=== PATIENT | female | born 1995 | race African-American/Black ===

== ENCOUNTER 2017-09-29 21:02 | Emergency (ER) | payer OTHER, SELFPAY ==
[2017-09-29 21:08] VITALS: BP 140/78; PULSE 108; RESP 20; TEMP 38.6; O2SAT 100; BMI 25.1
--- NOTE | 2017-09-29 21:37 | ED_ITS ---
HPI - Abdominal Pain General Chief Complaint: Abdominal Pain Stated Complaint: LOWER ABD PAIN CHILLS HEADACHE Time Seen by Provider: 09/29/17 21:18 Source: patient Mode of arrival: ambulatory Limitations: no limitations History of Present Illness HPI narrative: Patient presents to the emergency department today with a chief complaint ongoing right lower quadrant pain. She has had the symptoms for a week which include a low-grade fever and abdominal pain as well as some nausea. She denies runny nose, sore throat or cough. She denies any chest pain or shortness of breath. She has nausea but denies vomiting. She has had no diarrhea constipation. She denies dysuria, frequency urgency. She denies vaginal bleeding or discharge. She was seen and evaluated at [facility] yesterday and had extensive workup including urine and pelvic exam as well as ultrasound. She was treated with Rocephin and azithromycin for the possibility PID. MD complaint: abdominal pain Onset (ago): week(s) Pain Consistency: constant Location: RLQ Severity: moderate Quality: cramping and aching Radiation: none Migration to: no migration Relieving factors: nothing Exacerbating factors: nothing Associated symptoms: nausea and fever Related Data Previous Rx's Medication Instructions Recorded doxycycline hyclate 100 mg PO BID #20 tab 09/30/17 hydrocodone-acetaminophen 1 tab PO Q4-6H PRN #14 tab 09/30/17 Allergies Allergy/AdvReac Type Severity Reaction Status Date / Time No Known Allergies Allergy Mild Uncoded 09/29/17 21:12 Review of Systems Review of Systems All systems reviewed & are unremarkable except as noted in HPI and below Constitutional Reports body ache(s), Reports chills, Reports fatigue, Reports fever(s), Denies lethargy and Denies weakness Eyes Denies change in vision, Denies eye discharge, Denies irritation and Denies loss of vision ENT Ears, Nose, Mouth, and Throat: Denies change in voice, Denies neck pain and Denies sore throat Cardiovascular Denies chest pain, Denies irregular heart rhythm, Denies lightheadedness, Denies palpitations, Denies dyspnea, Denies dyspnea on exertion and Denies orthopnea Respiratory Denies cough, Denies dyspnea, Denies dyspnea on exertion and Denies wheezing Gastrointestinal Gastrointestinal: Reports abdominal pain Genitourinary Denies hematuria, Denies flank pain, Denies urinary incontinence and Denies urinary urgency Musculoskeletal Denies neck pain Neurologic Denies loss of vision and Denies weakness Endocrine Reports fatigue and Denies palpitations Allergic/Immunologic Denies wheezing [facility] Social History Smoking Status: Never smoker Exam Initial Vital Signs Initial Vital Signs: Vital Signs Temperature 101.4 F H 09/29/17 21:08 Pulse Rate 108 H 09/29/17 21:08 Respiratory Rate 20 09/29/17 21:08 Blood Pressure 140/78 H 09/29/17 21:08 Pulse Oximetry 100 09/29/17 21:08 Course Orders Ordered: ED Orders 09/29/17 21:55 Urine Microscopic Stat 09/29/17 21:58 Influenza A and B by PCR Rapid Stat 09/29/17 22:33 Basic Metabolic Panel Stat Bilirubin Total Stat Blood Culture Stat Complete Blood Count AUTO DIFF Stat Lactate (Lactic Acid) Stat Monotest Stat Procalcitonin Stat 09/29/17 22:41 CT abdomen pelvis w con Stat Sodium Chloride (Normal Saline 0.9%) 1,000 mls @ 1,000 mls/hr IV BOLUS ONE Stop: 09/30/17 00:12 Last Infusion: 09/29/17 23:15 Dose: 0 mls/hr Admin: 09/29/17 22:00 Dose: 1,000 mls/hr Ondansetron HCl (Zofran) 4 mg IV Q4HR PRN PRN Reason: Nausea And Vomiting Last Admin: 09/29/17 22:03 Dose: 4 mg Discontinued Medications Acetaminophen (Tylenol) 650 mg PO NOW ONE Stop: 09/29/17 23:54 Hydrocodone Bitart/Acetaminophen (Vicodin Prepack) 1 bottle MISC SEEINSTR ONE Stop: 09/30/17 00:04 Doxycycline Hyclate (Vibramycin) 100 mg PO NOW ONE Stop: 09/30/17 00:04 Sodium Chloride (Normal Saline 0.9%) 1,000 mls @ 1,000 mls/hr IV BOLUS ONE Stop: 09/29/17 22:59 Last Admin: 09/29/17 23:18 Dose: 1,000 mls/hr Ketorolac Tromethamine (Toradol) 15 mg IV NOW ONE Stop: 09/29/17 21:34 Last Admin: 09/29/17 22:03 Dose: 15 mg Vital Signs - 8 hr 09/29/17 21:08 09/29/17 22:03 09/29/17 23:20 Temperature 101.4 F H 101.4 F H 99.9 F H Pulse Rate 108 H 96 H Respiratory Rate 20 23 Blood Pressure 140/78 H Blood Pressure [Left Arm] 115/54 L Pulse Oximetry 100 97 09/29/17 23:22 Temperature 99.9 F H Pulse Rate Respiratory Rate Blood Pressure Blood Pressure [Left Arm] Pulse Oximetry MDM - Abdominal Pain Differential Diagnosis Differential diagnosis: Likely abdominal pain, acute appendicitis, calculus of kidney, constipation, diverticulitis, endometriosis and small bowel obstruction Medical Records Attestation: I reviewed the patient's medical records. Lab Data Attestation: I reviewed the patient's lab results. Result diagrams: 09/29/17 22:33 09/29/17 22:33 Lab Results 09/29/17 09/29/17 09/29/17 Range/Units 21:55 21:58 22:33 WBC 10.5 (4.5-11.0) X10^3/uL RBC 4.14 (4.0-5.2) X10^6/uL Hgb 13.1 (12.0-16.0) g/dL Hct 38.0 (36-46) % MCV 92.0 (80-100) fL MCH 31.6 (26-34) PG MCHC 34.3 (30-36) % RDW 12.6 (11.6-14.8) % Plt Count 111 L (150-400) X10^3/uL Neut % (Auto) 79.1 H (50-75) % Lymph % (Auto) 13.0 L (25-40) % Calvert % (Auto) 6.9 (3-14) % Eos % (Auto) 0.7 L (2-4) % Baso % (Auto) 0.3 (0-2) % Neut # (Auto) 8300 H (0824-2997) /uL Sodium (137-145) mmol/L Potassium (3.4-5.1) mmol/L Chloride (98-107) mmol/L Carbon Dioxide (22-32) mmol/L BUN (7-17) mg/dL Creatinine (0.52-1.04) mg/dL Estimated GFR (>60) mL/min BUN/Creatinine Ratio (6-22) Glucose (70-100) mg/dL Lactate (0.7-2.1) mmol/L Calcium (8.4-10.2) mg/dL Total Bilirubin (0.2-1.3) mg/dL Procalcitonin (<0.5) ng/mL Urine RBC 1-5/hpf (0-5/HPF) Urine WBC None seen (0-5/HPF) Ur Squamous Epith Cells 1-5 /hpf Urine Bacteria Few (2-10) H (None) Ur Culture Indicated? Cult not indicated Micro UA Comment Not Reportable Monoscreen (Negative) Influenza A & B (PCR) Negative (Negative) 09/29/17 09/29/17 09/29/17 Range/Units 22:33 22:33 22:33 WBC (4.5-11.0) X10^3/uL RBC (4.0-5.2) X10^6/uL Hgb (12.0-16.0) g/dL Hct (36-46) % MCV (80-100) fL MCH (26-34) PG MCHC (30-36) % RDW (11.6-14.8) % Plt Count (150-400) X10^3/uL Neut % (Auto) (50-75) % Lymph % (Auto) (25-40) % Calvert % (Auto) (3-14) % Eos % (Auto) (2-4) % Baso % (Auto) (0-2) % Neut # (Auto) (8269-8194) /uL Sodium 138 (137-145) mmol/L Potassium 3.9 (3.4-5.1) mmol/L Chloride 101.0 (98-107) mmol/L Carbon Dioxide 26.0 (22-32) mmol/L BUN 16.0 (7-17) mg/dL Creatinine 0.70 (0.52-1.04) mg/dL Estimated GFR > 60.0 (>60) mL/min BUN/Creatinine Ratio 22.9 H (6-22) Glucose 100 (70-100) mg/dL Lactate 1.3 (0.7-2.1) mmol/L Calcium 8.6 (8.4-10.2) mg/dL Total Bilirubin 0.6 (0.2-1.3) mg/dL Procalcitonin 0.17 (<0.5) ng/mL Urine RBC (0-5/HPF) Urine WBC (0-5/HPF) Ur Squamous Epith Cells Urine Bacteria (None) Ur Culture Indicated? Micro UA Comment Monoscreen (Negative) Influenza A & B (PCR) (Negative) 09/29/17 Range/Units 22:33 WBC (4.5-11.0) X10^3/uL RBC (4.0-5.2) X10^6/uL Hgb (12.0-16.0) g/dL Hct (36-46) % MCV (80-100) fL MCH (26-34) PG MCHC (30-36) % RDW (11.6-14.8) % Plt Count (150-400) X10^3/uL Neut % (Auto) (50-75) % Lymph % (Auto) (25-40) % Calvert % (Auto) (3-14) % Eos % (Auto) (2-4) % Baso % (Auto) (0-2) % Neut # (Auto) (9119-7786) /uL Sodium (137-145) mmol/L Potassium (3.4-5.1) mmol/L Chloride (98-107) mmol/L Carbon Dioxide (22-32) mmol/L BUN (7-17) mg/dL Creatinine (0.52-1.04) mg/dL Estimated GFR (>60) mL/min BUN/Creatinine Ratio (6-22) Glucose (70-100) mg/dL Lactate (0.7-2.1) mmol/L Calcium (8.4-10.2) mg/dL Total Bilirubin (0.2-1.3) mg/dL Procalcitonin (<0.5) ng/mL Urine RBC (0-5/HPF) Urine WBC (0-5/HPF) Ur Squamous Epith Cells Urine Bacteria (None) Ur Culture Indicated? Micro UA Comment Monoscreen Negative (Negative) Influenza A & B (PCR) (Negative) Imaging Data CT scan - abdomen: Radiologist's impression: 3 mm right renal stone. No hydronephrosis. Area of low density in right kidney, focal pyelonephritis is favored. Boggy appearing uterus with edema in the adnexal, in the proper clinical setting, pelvic inflammatory disease should be considered. No focal fluid collections to suggest tubo-ovarian abscess MDM Narrative Medical decision making narrative: Patient had a thorough evaluation last evening including a pelvic exam noting some discharge. She was given Rocephin IM and 1 dose of azithromycin. She had a normal pelvic ultrasound. Today she has increasing discomfort but continues to deny dysuria, frequency or urgency. Pyelonephritis is considered in the differential but given normal urine, lack of urinary complaints, and lack of right upper back pain is seems less likely Discharge Plan Departure Patient Disposition: Home, Self-Care Clinical Impression: Acute pelvic inflammatory disease (PID) Instructions: DI for Pelvic Inflammatory Disease Activity Restrictions/Additional Instructions: *You have been diagnosed with [ Pelvic Inflammatory Disease] *What to do: *Take medications as directed *Follow up with your primary care provider in 2-3 days *Return to ER if you should have worsening pain, fever, or any new, worsening or concerning symptoms Prescriptions: New hydrocodone-acetaminophen 5-325 mg tablet 1 tab PO Q4-6H PRN (Reason: pain) Qty: 14 RF: 0 doxycycline hyclate 100 mg tablet 100 mg PO BID Qty: 20 RF: 0
[2017-09-29] MEDS: SODIUM CHLORIDE 0.9% 1,000 ML 1000 ML IV ×2 (22:00→23:18)
[2017-09-29 22:03] VITALS: TEMP 38.6
[2017-09-29] MEDS: ONDANSETRON 4 MG/2 ML INJ IV (22:03)
[2017-09-29] MEDS: KETOROLAC 15 MG/ML VIAL IV (22:03)
[2017-09-29 22:24] LABS: Influenza A and B by PCR Rapid Negative (Negative)
[2017-09-29 22:36] LABS: WBC Urine None Seen (0-5/HPF)
--- NOTE | 2017-09-29 22:41 | DI.CT.S_ITS ---
PROCEDURE: CT ABDOMEN PELVIS W CON INDICATIONS: severe pelvic pain, fever, chills TECHNIQUE: After the administration of intravenous contrast, 5 mm thick sections acquired from the diaphragms to the symphysis. 5 mm thick coronal and sagittal reformats were performed. For radiation dose reduction, the following was used: automated exposure control, adjustment of mA and/or kV according to patient size. COMPARISON: None. FINDINGS: Image quality: Excellent. ABDOMEN: Lung bases: Lung bases are clear. Heart size is normal. Solid organs: There is a small hypodensity in the right hepatic lobe measuring up to 3 mm which is too small to characterize but statistically likely represents a cyst. Gallbladder appears within normal limits without calcified gallstones. Biliary system is non-dilated. Pancreas enhances normally. Spleen is normal in size and enhancement. No adrenal nodules. The kidneys demonstrate no hydronephrosis. There is a punctate mass or perirenal stone. There are 2 ovoid hypodense lesions within the right kidney measuring up to 2.2 x 1.3 cm and 1.4 x 1.0 cm in transverse dimension. These are heterogeneous in appearance with internal cystic or necrotic components. Peritoneum and bowel: Stomach, small bowel, and colon loops are normal in caliber and wall thickness. No evidence of appendicitis. No free fluid or air. Nodes and vessels: No retroperitoneal or mesenteric adenopathy. Aorta and inferior vena cava are normal in caliber. Miscellaneous: No ventral hernias. PELVIS: Genitourinary: Bladder wall thickness is normal. There is hyperemia of the uterus and cervix which are nonspecific. The ovaries are enlarged bilaterally with numerous small ovarian follicles. Miscellaneous: No inguinal hernias or adenopathy. Bones: No suspicious bony lesions. No vertebral body compression fractures. IMPRESSION: 1. 2 complex cystic lesions demonstrated within the right kidney. The differential includes small renal abscess collections or cystic neoplasms. Recommend correlation clinically and short-term followup to demonstrate resolution. 2. Bilateral enlarged ovaries with numerous small follicles suggestive of polycystic ovarian syndrome in the appropriate clinical context. Further evaluation may be obtained with pelvic ultrasound. 3. Nonspecific hyperemia of the uterus. Given the suspected infection, the findings may represent endometritis. No pelvic abscess identified. Findings discussed with Dr. Almanza on 09/30/17 at 10 AM. Dictated by: Hardeep Posey M.D. on 09/30/2017 at 9:54 Approved by: Hardeep Posey M.D. on 09/30/2017 at 10:09
[2017-09-29 22:49] LABS: Add Manual Diff / Slide Review NO; Basophils Percent Auto 0.3 % (0-2); Eosinophils Percent Auto 0.7 % (2-4); Hemoglobin 13.1 g/dL (12.0-16.0); Mean Corpuscular HGB Conc 34.3 % (30-36); Mean Corpuscular Hemoglobin 31.6 PG (26-34); Monocytes Percent Auto 6.9 % (3-14); Neutrophils Absolute Auto 8300 /uL (3000-5900); Neutrophils Percent Auto 79.1 % (50-75); Platelet Count 111 X10^3/uL (150-400); Red Blood Cell Count 4.14 X10^6/uL (4.0-5.2); Red Cell Distribution Width 12.6 % (11.6-14.8); White Blood Cell Count 10.5 X10^3/uL (4.5-11.0)
[2017-09-29 23:01] LABS: Monotest Negative (Negative)
[2017-09-29 23:05] LABS: Lactate (Lactic Acid) 1.3 mmol/L (0.7-2.1)
[2017-09-29 23:06] LABS: BUN Creatinine Ratio 22.9 (6-22); Bilirubin Total 0.6 mg/dL (0.2-1.3); Calcium 8.6 mg/dL (8.4-10.2); Estimated Glomerular Filt Rate > 60.0 mL/min (>60); Glucose 100 mg/dL (70-100); HEMOLYSIS < 15 (0-50); Potassium 3.9 mmol/L (3.4-5.1); Sodium 138 mmol/L (137-145)
[2017-09-29 23:10] LABS: RBC Urine 1-5/HPF (0-5/HPF)
[2017-09-29 23:11] LABS: Bacteria Urine Few (2-10); Culture Indicated Urine Cult Not Indicated; Squamous Epithelial Cell Urine 1-5 /HPF
[2017-09-29 23:20] VITALS: BP 115/54; PULSE 96; RESP 23; TEMP 37.7; O2SAT 97
[2017-09-29 23:22] VITALS: TEMP 37.7
[2017-09-29 23:22] LABS: Procalcitonin 0.17 ng/mL (<0.5)
[2017-09-30] MEDS: DOXYCYCLINE HYCLATE 100 MG TABLET PO (00:08)
[2017-09-30] MEDS: HYDROCODONE/ACET 5/325 PREPACK 1 BOTTLE MISC (00:08)
[2017-09-30 00:26] VITALS: TEMP 37.6
== END 2017-09-30 00:33 | disposition home or self-care (01) ==
PROVIDERS: Emergency Provider Emergency Medicine
DX: N73.0 Acute parametritis and pelvic cellulitis (principal)
CPT/HCPCS: 74177; 80048; 81003; 81015; 81025; 82247; 83605; 84145; 85025; 86318; 87040; 87400; 96361; 96374; 96375; 99283; 99284; J1885; J2405; Q9967

== ENCOUNTER 2017-09-30 11:24 | Inpatient (IN) | payer OTHER, SELFPAY ==
[2017-09-30] VITALS (8 sets, daily range): BP systolic 98–121; BP diastolic 42–64; PULSE 64–88; RESP 14–18; TEMP 36.3–38.2; O2SAT 97–99; BMI 25.1
--- NOTE | 2017-09-30 12:45 | ED.RECABL ---
HPI - Recheck/Abnormal Lab/Rx General Chief Complaint: Recheck/Abnormal Lab/Rx Stated Complaint: told to return to er today for abcess Time Seen by Provider: 09/30/17 11:53 Source: patient Mode of arrival: ambulatory Limitations: no limitations History of Present Illness HPI narrative: 22F seen and discharged from ED with diagnosis of PID called back for amended radiology report showing 2 small possible renal abscesses. Patient has been having continued symptoms PCP Dr. Watkins Related Data Previous Rx's Medication Instructions Recorded doxycycline hyclate 100 mg PO BID #20 tab 09/30/17 hydrocodone-acetaminophen 1 tab PO Q4-6H PRN #14 tab 09/30/17 Allergies Allergy/AdvReac Type Severity Reaction Status Date / Time No Known Allergies Allergy Verified 09/30/17 12:22 Review of Systems Review of Systems Review of Systems All systems reviewed & are unremarkable except as noted in HPI and below Constitutional Reports body ache(s), Reports chills, Reports fatigue, Reports fever(s), Denies lethargy and Denies weakness Eyes Denies change in vision, Denies eye discharge, Denies irritation and Denies loss of vision ENT Ears, Nose, Mouth, and Throat: Denies change in voice, Denies neck pain and Denies sore throat Cardiovascular Denies chest pain, Denies irregular heart rhythm, Denies lightheadedness, Denies palpitations, Denies dyspnea, Denies dyspnea on exertion and Denies orthopnea Respiratory Denies cough, Denies dyspnea, Denies dyspnea on exertion and Denies wheezing Gastrointestinal Gastrointestinal: Reports abdominal pain Genitourinary Denies hematuria, Denies flank pain, Denies urinary incontinence and Denies urinary urgency Musculoskeletal Denies neck pain Neurologic Denies loss of vision and Denies weakness Endocrine Reports fatigue and Denies palpitations Allergic/Immunologic Denies wheezing PFSH Social History household members: significant other Smoking Status: Never smoker Exam Narrative Exam Narrative: Exam: Constitutional - ill appearing, well nourished, mild distress, diaphoretic EYES - PERRL, EOMI ENT - Moist oral mucosa Cardiovasuclar - Normal rate, rhythm, no murmurs, gallops, rubs Respiratory - Lungs CTA bilaterally, no increased respiratory effort, no accessory muscle use GI - Soft, non tender, non distended, no rebound MSK - No deformity, R side CVA tenderness, No peripheral edema Skin - No rash, no petechiae Neuro - A&Ox3, moves all extremities. No focal deficits Initial Vital Signs Initial Vital Signs: Vital Signs Temperature 100.7 F H 09/30/17 11:30 Pulse Rate 85 09/30/17 11:30 Respiratory Rate 18 09/30/17 11:30 Blood Pressure 121/64 H 09/30/17 11:30 Pulse Oximetry 99 09/30/17 11:30 Course Orders Ordered: ED Orders 09/30/17 11:40 Blood Culture Stat 09/30/17 13:38 Urine Microscopic Stat Piperacillin/Tazobactam/Dextrose (Zosyn) 4.5 gm in 100 mls @ 200 mls/hr IV Q6H CHINMAY Sodium Chloride (Normal Saline 0.9%) 1,000 mls @ 125 mls/hr IV CONT CHINMAY Discontinued Medications Piperacillin/Tazobactam/Dextrose (Zosyn) 4.5 gm in 100 mls @ 200 mls/hr IV NOW ONE Stop: 09/30/17 12:46 Last Infusion: 09/30/17 13:36 Dose: 0 mls/hr Admin: 09/30/17 13:00 Dose: 200 mls/hr Sodium Chloride (Normal Saline 0.9%) 1,000 mls @ 1,000 mls/hr IV BOLUS ONE Stop: 09/30/17 13:16 Last Infusion: 09/30/17 14:22 Dose: 0 mls/hr Admin: 09/30/17 12:59 Dose: 1,000 mls/hr Vital Signs - 8 hr 09/30/17 11:30 09/30/17 12:24 09/30/17 13:31 Temperature 100.7 F H 100.7 F H Pulse Rate 85 85 81 Respiratory Rate 18 18 14 Blood Pressure 121/64 H 121/64 H Blood Pressure [Left Arm] 108/49 L Pulse Oximetry 99 99 99 09/30/17 14:46 Temperature 98.7 F Pulse Rate 88 Respiratory Rate 16 Blood Pressure 115/55 L Blood Pressure [Left Arm] Pulse Oximetry 99 MDM - Recheck/Abnormal Lab/Rx MDM Narrative Medical decision making narrative: Blood cultures ordered Patient started on IV zosyn. Consulted with Dr. Rush, Urology - recommends inpatient management with IV abx. Interventional radiology if abscesses do not improve. Case discussed with Dr. Troncoso; agrees with plan. Discharge Plan Departure Patient Disposition: Admitted As Inpatient Clinical Impression: Abscess of right kidney Discharge Date/Time: 09/30/17 14:23 Interventions: ED Discharge Assessment Last Done: 09/30/17 14:21 Admit Date/Time: 09/30/17 14:11 Admit Provider: Adela Troncoso
[2017-09-30] MEDS: SODIUM CHLORIDE 0.9% 1,000 ML 1000 ML IV (12:59)
[2017-09-30] MEDS: PIPERACILLIN-TAZO 4.5 GM/100 ML FROZ.PIGGY IV (13:00)
[2017-09-30] MEDS: SODIUM CHLORIDE 0.9% 1,000 ML 125 ML IV (16:04)
--- NOTE | 2017-09-30 16:11 | PM.HP.1 ---
History of Present Illness Chief complaint: told to return to er today for abcess Narrative: Ari Kaur is a 22 year old female, patient of Dr. Shannon Watkins at [facility] who presented to the [facility] Emergency room today for fever and right lower quadrant pain. She has started not feeling well about 10 days ago. She was having dull aching sensation in the right lower quadrant. She rated the severity of the discomfort as 4/10. The pain comes and goes. She also has malaise and fatigue. She has not noticed any urinary frequency, urgency, or burning with urination. About 3-4 days ago she started having fever. She was seen at [facility] 2 days ago and was diagnosed with pelvic inflammatory disease. She received IM ceftriaxone injection and azithromycin orally. She has not noticed improvement of her symptoms. Yesterday her fever went up to 103. She presented to the [facility] Emergency Room today. Abdominal CT scan showed two complex renal cyst that are concerning for possible renal abscess. She received 1 dose of IV Zosyn and was admitted to the medicine floor for possible renal abscess. Patient History Medical History Labral tear of shoulder (Acute) Comment: Right shoulder labrum repair Family & Social History Social History: She is single. She has been with her current sexual partner for more than a year. She denies alcohol drinking or cigarette smoking. 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 Safety & Behavioral: Feels Safe in Current Yes Environment Tobacco & Substance use: Smoking Status Never smoker alcohol intake frequency holiday/special occasion Substance Use Type does not use Meds Home Medications Medication Instructions Recorded Confirmed Type doxycycline hyclate 100 mg PO BID #20 tab 09/30/17 09/30/17 Rx hydrocodone-acetaminophen 1 tab PO Q4-6H PRN #14 tab 09/30/17 09/30/17 Rx Allergies Allergy/AdvReac Type Severity Reaction Status Date / Time Sulfa (Sulfonamide Allergy Intermediate Hives Verified 09/30/17 16:09 Antibiotics) Review of Systems Constitutional Constitutional: Reports chills, Reports fatigue, Reports fever(s) and Reports weakness Cardiovascular Comments: No shortness of breath or chest pain Gastrointestinal Gastrointestinal: Reports as per HPI Genitourinary Genitourinary: Reports as per HPI Neurologic Neurologic: Reports weakness Endocrine Endocrine: Reports fatigue Exam Vital Signs (past 8 hours): Vital Signs - 8 hr 09/30/17 11:30 09/30/17 12:24 09/30/17 13:31 Temperature 100.7 F H 100.7 F H Pulse Rate 85 85 81 Respiratory Rate 18 18 14 Blood Pressure 121/64 H 121/64 H Blood Pressure [Left Arm] 108/49 L Pulse Oximetry 99 99 99 09/30/17 14:46 Temperature 98.7 F Pulse Rate 88 Respiratory Rate 16 Blood Pressure 115/55 L Blood Pressure [Left Arm] Pulse Oximetry 99 Pulse Oximetry 99 Oxygen Delivery Method Room Air Oxygen Flow Rate 0 Narrative Exam Narrative: GENERAL: Pleasant appearing young woman in no acute distress. HEENT: Head normocephalic, atraumatic. Eyes pupils equal round NECK: Supple, no JVD, CHEST: Breath sounds equal bilaterally, no wheezes rales or rhonchi. CARDIAC: Regular rate and rhythm without murmurs, rubs or gallops. ABDOMEN: Soft, mild right lower quadrant tenderness, no CVA tenderness. Normoactive bowel sounds all 4 quadrants. No guarding or rebound. EXTREMITIES: Normal range of motion, no clubbing or edema. NEUROLOGICAL: Alert and oriented; Normal muscle strength. SKIN: Warm, dry, no petechiae, no rashes or lesions. Objective Imaging CT scan - abdomen: Radiologist's impression: 1. 2 complex cystic lesions demonstrated within the right kidney. The differential includes small renal abscess collections or cystic neoplasms. Recommend correlation clinically and short-term followup to demonstrate resolution. 2. Bilateral enlarged ovaries with numerous small follicles suggestive of polycystic ovarian syndrome in the appropriate clinical context. Further evaluation may be obtained with pelvic ultrasound. 3. Nonspecific hyperemia of the uterus. Given the suspected infection, the findings may represent endometritis. No pelvic abscess identified. Assessment & Plan Plan: Plan: 1. Pelvic inflammatory disease: We will start cefotetan IV 2 g q.12 hours and doxycycline 100 mg orally twice a day. 2. Small cystic lesion in the right kidney: Needs outpatient follow-up and evaluation. Renal abscesses on likely.
--- NOTE | 2017-09-30 16:25 | P.HP_ITS ---
History of Present Illness Chief complaint: told to return to er today for abcess Narrative: Ari Kaur is a 22 year old female, patient of Dr. Shannon Watkins at [facility] who presented to the [facility] Emergency room today for fever and right lower quadrant pain. She has started not feeling well about 10 days ago. She was having dull aching sensation in the right lower quadrant. She rated the severity of the discomfort as 4/10. The pain comes and goes. She also has malaise and fatigue. She has not noticed any urinary frequency, urgency, or burning with urination. About 3-4 days ago she started having fever. She was seen at [facility] 2 days ago and was diagnosed with pelvic inflammatory disease. She received IM ceftriaxone injection and azithromycin orally. She has not noticed improvement of her symptoms. Yesterday her fever went up to 103. She presented to the [facility] Emergency Room today. Abdominal CT scan showed two complex renal cyst that are concerning for possible renal abscess. She received 1 dose of IV Zosyn and was admitted to the medicine floor for possible renal abscess. Patient History Medical History Labral tear of shoulder (Acute) Comment: Right shoulder labrum repair Family & Social History Social History: She is single. She has been with her current sexual partner for more than a year. She denies alcohol drinking or cigarette smoking. 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 Safety & Behavioral: Feels Safe in Current Yes Environment Tobacco & Substance use: Smoking Status Never smoker alcohol intake frequency holiday/special occasion Substance Use Type does not use Meds Home Medications Medication Instructions Recorded Confirmed Type doxycycline hyclate 100 mg PO BID #20 tab 09/30/17 09/30/17 Rx hydrocodone-acetaminophen 1 tab PO Q4-6H PRN #14 tab 09/30/17 09/30/17 Rx Allergies Allergy/AdvReac Type Severity Reaction Status Date / Time Sulfa (Sulfonamide Allergy Intermediate Hives Verified 09/30/17 16:09 Antibiotics) Review of Systems Constitutional Constitutional: Reports chills, Reports fatigue, Reports fever(s) and Reports weakness Cardiovascular Comments: No shortness of breath or chest pain Gastrointestinal Gastrointestinal: Reports as per HPI Genitourinary Genitourinary: Reports as per HPI Neurologic Neurologic: Reports weakness Endocrine Endocrine: Reports fatigue Exam Vital Signs (past 8 hours): Vital Signs - 8 hr 3 09/30/17 11:30 09/30/17 12:24 09/30/17 13:31 Temperature 100.7 F H 100.7 F H Pulse Rate 85 85 81 Respiratory Rate 18 18 14 Blood Pressure 121/64 H 121/64 H Blood Pressure [Left Arm] 108/49 L Pulse Oximetry 99 99 99 3 09/30/17 14:46 Temperature 98.7 F Pulse Rate 88 Respiratory Rate 16 Blood Pressure 115/55 L Blood Pressure [Left Arm] Pulse Oximetry 99 Pulse Oximetry 99 Oxygen Delivery Method Room Air Oxygen Flow Rate 0 Narrative Exam Narrative: GENERAL: Pleasant appearing young woman in no acute distress. HEENT: Head normocephalic, atraumatic. Eyes pupils equal round NECK: Supple, no JVD, CHEST: Breath sounds equal bilaterally, no wheezes rales or rhonchi. CARDIAC: Regular rate and rhythm without murmurs, rubs or gallops. ABDOMEN: Soft, mild right lower quadrant tenderness, no CVA tenderness. Normoactive bowel sounds all 4 quadrants. No guarding or rebound. EXTREMITIES: Normal range of motion, no clubbing or edema. NEUROLOGICAL: Alert and oriented; Normal muscle strength. SKIN: Warm, dry, no petechiae, no rashes or lesions. Objective Imaging CT scan - abdomen: Radiologist's impression: 1. 2 complex cystic lesions demonstrated within the right kidney. The differential includes small renal abscess collections or cystic neoplasms. Recommend correlation clinically and short-term followup to demonstrate resolution. 2. Bilateral enlarged ovaries with numerous small follicles suggestive of polycystic ovarian syndrome in the appropriate clinical context. Further evaluation may be obtained with pelvic ultrasound. 3. Nonspecific hyperemia of the uterus. Given the suspected infection, the findings may represent endometritis. No pelvic abscess identified. Assessment & Plan Plan: Plan: 1. Pelvic inflammatory disease: We will start cefotetan IV 2 g q.12 hours and doxycycline 100 mg orally twice a day. 2. Small cystic lesion in the right kidney: Needs outpatient follow-up and evaluation. Renal abscesses on likely.
[2017-09-30] MEDS: CEFOTETAN 2 GM/50 ML PIGGYBACK IV (17:19)
[2017-09-30] MEDS: ACETAMINOPHEN 325 MG TABLET 650 MG PO (17:19)
[2017-09-30 18:18] LABS: Bacteria Urine None Seen; RBC Urine None Seen (0-5/HPF); WBC Urine None Seen (0-5/HPF)
[2017-09-30 18:51] LABS: Culture Indicated Urine Cult Not Indicated; Urine Comments Microscopic Normal
[2017-09-30] MEDS: DOXYCYCLINE HYCLATE 100 MG TABLET PO (20:18)
[2017-10-01] MEDS: SODIUM CHLORIDE 0.9% 1,000 ML 125 ML IV (00:16)
[2017-10-01 00:20] VITALS: O2SAT 99
[2017-10-01 04:14] VITALS: BP 106/66; PULSE 69; RESP 16; TEMP 36.6; O2SAT 99
[2017-10-01] MEDS: CEFOTETAN 2 GM/50 ML PIGGYBACK IV (04:15)
[2017-10-01 07:40] VITALS: BP 114/69; PULSE 65; RESP 18; TEMP 36.9; O2SAT 100
--- NOTE | 2017-10-01 07:42 | PM.DS.1 ---
History of Present Illness Chief complaint: told to return to er today for abcess Narrative: Ari Kaur is a 22 year old female, patient of Dr. Shannon Watkins at [facility] who presented to the [facility] Emergency room earlier today for fever and right lower quadrant pain. She has started not feeling well about 10 days ago. She was having dull aching sensation in the right lower quadrant. She rated the severity of the discomfort as 4/10. The pain comes and goes. She also has malaise and fatigue. She has not noticed any urinary frequency, urgency, or burning with urination. About 3-4 days ago she started having fever. She was seen at [facility] 2 days ago and was diagnosed with pelvic inflammatory disease. Pelvic exam was performed. Cervical swab was sent for GC chlamydia screening. She received She received IM antibiotics injection and azithromycin orally. She has not noticed improvement of her symptoms. Yesterday her fever went up to 103. She presented to the [facility] Emergency Room last night for the same complaint. Abdominal CT scan showed two complex renal cyst that are concerning for possible renal abscess. She was called to return back to the ER due to concern of possible abscess in the kidney. She received 1 dose of IV Zosyn and was admitted to the medicine floor for possible renal abscess. Discharge Providers Date of admission: 09/30/17 14:11 Primary care physician: Dr. Shannon aWtkins Discharge provider: Adela Troncoso MD Discharge Date: 10/01/17 Summary Discharge Diagnosis: Acute Pelvic inflammatory disease Complex right renal cysts Hospital Course: Patient was treated with IV cefotetan 2 g q.12 hours. She was also started on oral doxycycline. She had improvement of her symptoms with improvement of lower abdominal discomfort. Her fever also has resolved. We are going to the discharge her on oral doxycycline for a total of 14 days. She will also receive 1 time dose of probenecid 1 g p.o. prior to hospital discharge. Her GC chlamydia screening test at [facility] was negative. HCG was also negative. Urine analysis did not show pyuria. Urine culture did grow Enterobacter that is sensitive to cephalosporins. Her sexual partner was also treated for possible STD. Status at Discharge Cognitive/behavioral status at discharge: Alert and oriented x3 Functional status at discharge: independent ambulation Overall status at discharge: patient is back to baseline Time Spent with Patient Greater than 30 minutes Exam Vital Signs (past 8 hours): Vital Signs - 8 hr 09/30/17 23:43 10/01/17 00:20 10/01/17 04:14 Temperature 97.4 F L 97.8 F Pulse Rate 64 69 Respiratory Rate 16 16 Blood Pressure 98/56 L 106/66 Pulse Oximetry 99 99 99 Pulse Oximetry 99 Oxygen Delivery Method Room Air Oxygen Flow Rate [address] scan - abdomen: Radiologist's impression: 1. 2 complex cystic lesions demonstrated within the right kidney. The differential includes small renal abscess collections or cystic neoplasms. Recommend correlation clinically and short-term followup to demonstrate resolution. 2. Bilateral enlarged ovaries with numerous small follicles suggestive of polycystic ovarian syndrome in the appropriate clinical context. Further evaluation may be obtained with pelvic ultrasound. 3. Nonspecific hyperemia of the uterus. Given the suspected infection, the findings may represent endometritis. No pelvic abscess identified. Labs Labs: Laboratory Results - last 24 hr 09/30/17 13:00 Urine RBC None seen Urine WBC None seen Urine Bacteria None seen Ur Culture Indicated? Cult not indicated Micro UA Comment Microscopic normal Discharge Plan Discharge Plan Patient Disposition: Home, Self-Care Provider Discharge Instructions Diet: Diet as Tolerated Activity: As tolerated Discharge Data Attending Provider: Adela Troncoso Admit Date/Time: 09/30/17 14:11 Discharges patient from system. Discharge Date/Time: 10/01/17 08:45
--- NOTE | 2017-10-01 07:48 | P.DS_ITS ---
History of Present Illness Chief complaint: told to return to er today for abcess Narrative: Ari Kaur is a 22 year old female, patient of Dr. Shannon Watkins at [facility] who presented to the [facility] Emergency room earlier today for fever and right lower quadrant pain. She has started not feeling well about 10 days ago. She was having dull aching sensation in the right lower quadrant. She rated the severity of the discomfort as 4/10. The pain comes and goes. She also has malaise and fatigue. She has not noticed any urinary frequency, urgency, or burning with urination. About 3-4 days ago she started having fever. She was seen at [facility] 2 days ago and was diagnosed with pelvic inflammatory disease. Pelvic exam was performed. Cervical swab was sent for GC chlamydia screening. She received She received IM antibiotics injection and azithromycin orally. She has not noticed improvement of her symptoms. Yesterday her fever went up to 103. She presented to the [facility] Emergency Room last night for the same complaint. Abdominal CT scan showed two complex renal cyst that are concerning for possible renal abscess. She was called to return back to the ER due to concern of possible abscess in the kidney. She received 1 dose of IV Zosyn and was admitted to the medicine floor for possible renal abscess. Discharge Providers Date of admission: 09/30/17 14:11 Primary care physician: Dr. Shannon Watkins Discharge provider: Adela Troncoso MD Discharge Date: 10/01/17 Summary Discharge Diagnosis: Acute Pelvic inflammatory disease Complex right renal cysts Hospital Course: Patient was treated with IV cefotetan 2 g q.12 hours. She was also started on oral doxycycline. She had improvement of her symptoms with improvement of lower abdominal discomfort. Her fever also has resolved. We are going to the discharge her on oral doxycycline for a total of 14 days. She will also receive 1 time dose of probenecid 1 g p.o. prior to hospital discharge. Her GC chlamydia screening test at [facility] was negative. HCG was also negative. Urine analysis did not show pyuria. Urine culture did grow Enterobacter that is sensitive to cephalosporins. Her sexual partner was also treated for possible STD. Status at Discharge Cognitive/behavioral status at discharge: Alert and oriented x3 Functional status at discharge: independent ambulation Overall status at discharge: patient is back to baseline Time Spent with Patient Greater than 30 minutes Exam Vital Signs (past 8 hours): Vital Signs - 8 hr 3 09/30/17 23:43 10/01/17 00:20 10/01/17 04:14 Temperature 97.4 F L 97.8 F Pulse Rate 64 69 Respiratory Rate 16 16 Blood Pressure 98/56 L 106/66 Pulse Oximetry 99 99 99 Pulse Oximetry 99 Oxygen Delivery Method Room Air Oxygen Flow Rate [address] scan - abdomen: Radiologist's impression: 1. 2 complex cystic lesions demonstrated within the right kidney. The differential includes small renal abscess collections or cystic neoplasms. Recommend correlation clinically and short-term followup to demonstrate resolution. 2. Bilateral enlarged ovaries with numerous small follicles suggestive of polycystic ovarian syndrome in the appropriate clinical context. Further evaluation may be obtained with pelvic ultrasound. 3. Nonspecific hyperemia of the uterus. Given the suspected infection, the findings may represent endometritis. No pelvic abscess identified. Labs Labs: Laboratory Results - last 24 hr 09/30/17 13:00 Urine RBC None seen Urine WBC None seen Urine Bacteria None seen Ur Culture Indicated? Cult not indicated Micro UA Comment Microscopic normal Discharge Plan Discharge Plan Patient Disposition: Home, Self-Care Provider Discharge Instructions Diet: Diet as Tolerated Activity: As tolerated Discharge Data Attending Provider: Adela Troncoso Admit Date/Time: 09/30/17 14:11 Discharges patient from system. Discharge Date/Time: 10/01/17 08:45
[2017-10-01] MEDS: DOXYCYCLINE HYCLATE 100 MG TABLET PO (08:11)
[2017-10-01] MEDS: PROBENECID 500 MG TABLET 1000 MG PO (08:11)
== END 2017-10-01 08:45 | disposition home or self-care (01) | DRG 757 ==
LOC: ED 12:49 → AC 14:11
PROVIDERS: Admitting Provider Internal Medicine; Emergency Provider Student in an Organized Health Care Education/Training Program; Visit Provider Internal Medicine
DX: N73.0 Acute parametritis and pelvic cellulitis (principal); N15.1 Renal and perinephric abscess; Q61.02 Congenital multiple renal cysts
CPT/HCPCS: 36415; 36591; 81003; 81015; 87040; 99283; 99284; J2543